=== PATIENT | male | born 1945 | race Two or more races ===

== ENCOUNTER 2024-02-15 13:59 | Emergency (ER) | payer MEDICARE, OTHER ==
[~2024-02-15] VITALS: Ht 172.7 cm; Wt 79.4 kg
--- NOTE | 2024-02-15 14:10 | NUR ---
sent by PMD for abnormal EKG. complaining of Chest pain radiating to left arm.
--- NOTE | 2024-02-15 14:15 | NUR ---
Dr. Oliva on phone with Dr. milligan [facility]
--- NOTE | 2024-02-15 14:19 | NUR ---
CALLED CODE STEMI
--- NOTE | 2024-02-15 14:21 | NUR ---
[facility] [id number]
--- NOTE | 2024-02-15 14:21 | NUR ---
Abner mcclain in [facility] - 02/15/24 at 1440 by TARAH CODE STEMI ACTIVATED
--- NOTE | 2024-02-15 14:21 | NUR ---
EKG obtained at 1411.
[2024-02-15] MEDS ORDERED: HEPARIN SODIUM, PORCINE 5000 UNITS/1 ML VIAL ONE (14:25)
[2024-02-15] MEDS: ASPIRIN 81 MG TAB.CHEW PO ONE (14:25)
[2024-02-15] MEDS ORDERED: ASPIRIN 81 MG TAB.CHEW ONE (14:25)
--- NOTE | 2024-02-15 14:29 | NUR ---
RESCUE 88 AT BEDSIDE.
[2024-02-15] MEDS: HEPARIN SODIUM, PORCINE 5000 UNITS/1 ML VIAL IV ONE (14:30)
[2024-02-15 14:31] LABS: BASOPHILS # (AUTO) 0.1 K/uL (0.0-0.2); BASOPHILS % (AUTO) 0.8 % (0.0-2.0); EOSINOPHILS # (AUTO) 0.2 K/uL (0.0-0.7); EOSINOPHILS % (AUTO) 1.6 % (0.0-6.0); HEMATOCRIT 46 % (39-51); HEMOGLOBIN 14.9 g/dL (13.5-17.5); LYMPHOCYTES # (AUTO) 0.9 K/uL (0.8-4.8); MEAN CORPUSCULAR HEMOGLOBIN 27 PG (26.0-33.0); MEAN CORPUSCULAR HGB CONC 33 g/dl (31.0-36.0); MEAN CORPUSCULAR VOLUME 83 fL (80-96); MONOCYTES # (AUTO) 1.4 K/uL (0.1-1.30); MONOCYTES % (AUTO) 13.9 % (2.0-12.0); NEUTROPHILS # (AUTO) 7.3 K/uL (1.8-8.9); NEUTROPHILS % (AUTO) 74.7 % (43.0-81.0); PLATELET COUNT (AUTO) 257 K/uL (150-450); RED BLOOD CELL COUNT(AUTO) 5.51 MIL/uL (4.5-6.0); RED CELL DISTRIBUTION WIDTH 18.4 % (11.5-15.0); WHITE BLOOD COUNT (AUTO) 9.8 K/uL (4.3-11.0)
--- NOTE | 2024-02-15 14:32 | NUR ---
Dr Oliva stated that there is no need to give the patient nitro.
[2024-02-15 14:33] VITALS: BP 150/91; TEMP 97.9; O2SAT 96
--- NOTE | 2024-02-15 14:34 | NUR ---
the patient is picked up [facility] going to [facility] er
--- NOTE | 2024-02-15 14:38 | NUR ---
report given to nurse Callahan from [facility] ER.
[2024-02-15 14:41] LABS: CARBON DIOXIDE 31 mmol/L (21-32); CHLORIDE 103 mmol/L (98-107); CREATININE 1.3 mg/dL (0.6-1.3); GLUCOSE 89 mg/dL (74-106); POTASSIUM 4.6 mmol/L (3.5-5.1); SODIUM SERUM 139 mmol/L (136-145); UREA NITROGEN, BLOOD 36 mg/dL (7-18)
--- NOTE | 2024-02-15 14:41 | NUR ---
Pt's belongings were inventoried and everything was bagged for transport.
== END 2024-02-15 14:43 | disposition short-term general hospital (02) ==
LOC: ER 14:09
DX: I21.3 ST elevation (STEMI) myocardial infarction of unspecified site (principal); I10 Essential (primary) hypertension; Z88.0 Allergy status to penicillin
CPT/HCPCS: 99291; 96374; 93005; 85025; 80048; 36415; 84484; J1644